=== PATIENT | male | born 1960 | race Caucasian/White ===

== ENCOUNTER 2023-10-20 14:40 | Inpatient (IN) | payer OTHER, SELFPAY ==
[2023-10-20] VITALS (9 sets, daily range): BP systolic 102–130; BP diastolic 41–74; PULSE 48–59; RESP 13–22; TEMP 36.1–36.9; O2SAT 93–95; BMI 31.2
[2023-10-20] MEDS: LACTATED RINGERS 1,000 ML 42 ML IV ×2 (18:31→20:08)
--- NOTE | 2023-10-20 18:46 | PM.HP.1 ---
History of Present Illness History of Present Illness Date Patient Seen: 10/20/23 Time Patient Seen: 18:46 Date of Onset of Symptoms: 10/20/23 Chief complaint: DX: Left knee replacement complication Narrative: 63-year-old male had a total on 10/04/[address] Ruggiero. He was doing excellent postoperatively with range of motion to 120? and walking mostly without a walker when he slipped on a wet floor and fell this morning and sustained a wound dehiscence to his left total knee arthroplasty incision. He was seen at [facility] and transferred to [facility] for definitive care. Time of injury with a proximally 10:00 a.m.. The patient has been NPO since that time. Prior to that his pain was well-controlled. He was on aspirin b.i.d. for DVT prophylaxis. He denies any head injury. No fevers or chills. Denies syncope or lightheadedness. States with mechanical fall after slipping. On dog urine [facility] Social History household members: spouse Smoking Status: Former smoker Meds Home Medications and Allergies Allergies Allergy/AdvReac Type Severity Reaction Status Date / Time oxycodone AdvReac Intermediate Confusion Verified 10/20/23 18:21 hydrocodone AdvReac Confusion Verified 10/20/23 18:22 Review of Systems Review of Systems ROS: Yes All systems reviewed with the patient and are negative except as otherwise documented Exam Vital Signs (past 8 hours): - 10/20/23 18:22 Temperature 97.2 F L Pulse Rate 50 L Respiratory Rate 16 Blood Pressure 113/43 L Pulse Oximetry 95 Oxygen Delivery Method Room Air Oxygen Delivery Method Room Air Narrative Exam Narrative: General examination: Alert oriented male no acute distress lying in the hospital stretcher. Family at bedside. HEENT exam normocephalic atraumatic Heart regular rate and rhythm Lungs clear to auscultation Left lower extremity in bandage with blood. Calf is soft. Thigh is soft. Wiggles toes and dorsiflexes and plantar flexes ankle. Rest of knee exam limited due to known bandage and acute injury. Brisk capillary refill. Upper extremities are benign with full range of motion no limitations Const General: cooperative Objective Imaging 2 views the left knee: My impression: AP and lateral of the left knee reviewed from [facility] on 10/20/2023 demonstrate knee arthroplasty, expected alignment, no obvious fractures. Assessment & Plan Assessment and plan (1) Wound dehiscence, surgical: Status: Acute (2) History of total left knee replacement: Status: Acute Plan Patient has a wound dehiscence of his left total knee replacement incision. He is 2 weeks out from surgery this was sustained after a mechanical fall. He is indicated for surgical irrigation debridement. If the dehiscence goes deep to the arthrotomy and exposed the implant then would do a poly exchange. We will get preoperative and 24 hours of postoperative antibiotics. Postoperative will be weightbear as tolerated and will resume standard total knee arthroplasty protocol. We discussed risks benefits and alternatives of the surgery. We discussed risks of wound dehiscence, wound healing complications, infection, need for additional surgery or need for additional antibiotics were need for additional extensor mechanism repair. The risks and benefits of the procedure have been discussed with the patient and given the opportunity to ask questions. We also discussed complications including DVT, PE, cardiopulmonary complications and . The patient expressed a thorough understanding of the risks and benefits of surgery and has elected to proceed. Consent was signed. Site of surgery was marked. Assessment & Plan narrative: High Level medical decision-making. Indication for direct admission to the hospital and urgent surgery for washout exposed total knee arthroplasty after surgical dehiscence from mechanical fall. PROFEE Charge Codes Initial inpatient/observation care: [id number]
[2023-10-20] MEDS: CEFAZOLIN 2 GM/100 ML PREMIX 100 ML IV ×2 (19:12→21:55)
[2023-10-20] MEDS: ACETAMINOPHEN IV 1,000 MG/100 ML VIAL 400 MG IV (19:15)
--- NOTE | 2023-10-20 19:33 | SUR.OPER ---
Supine on padded OR bed. Pillow under head, arms secured on padded armboards <90 degree abduction. Safety belt across torso. Non-operative leg secured with tape over blanket over lower leg. Operative leg secured in Javan positioner. Foam padded brace at thigh of operative leg.
[2023-10-20] MEDS: BUPIVACAINE 0.25% (PF) 30 ML, EPINEPHrine 0.15 MG INJ (19:42)
--- NOTE | 2023-10-20 21:19 | PM.OP.1 ---
Operative Date/Time/Diagnoses Date of procedure: 10/20/23 Time of procedure: 19:00 Pre-op diagnosis: Complication left total knee replacement with surgical dehiscence, deep, exposed implant. After fall Post-op diagnosis: same Procedure & Clinicians Procedure: 1. revision left knee replacement, limited 1 component--- polyethylene liner exchange, irrigation debridement and closure complex wound. CPT code 08942 +52 Same procedure as scheduled: Yes Indications: The patient is a 63-year-old male that underwent a total knee arthroplasty on on 10/04/2023. Was doing very well at his 2 week postop appointment then this morning fell at home when he was walking without assistive devices after slipped on dog urine on the ground. He fell onto his left knee and sustained a surgical wound dehiscence through the skin and arthrotomy with exposed implant. He was taken to the hospital in [place] and evaluated with the open wound and exposed implant and transferred to [facility] and [place] for definitive treatment with his operating surgeon. The risks and benefits of the procedure have been discussed with the patient and given the opportunity to ask questions. The risks of surgery include but are not limited to infection, malunion, nonunion, persistence of pain, damage to nerves and blood vessels, posttraumatic arthritis, DVT, PE, cardiopulmonary complications and . The patient expressed a thorough understanding of the risks and benefits of surgery and has elected to proceed. Consent was signed. Surgeon: Smiley Ruggiero Click Yes if Unassisted: Yes Anesthesia Type: General and Local (0.25% Marcaine with epinephrine) Operative Notes Findings: Complete surgical wound dehiscence of the total knee incision through the skin and through the arthrotomy with exposed implant and ruptured deep sutures directly visible. Polyethylene and metallic knee replacement components directly visualized in the wound. Lead disruption of medial arthrotomy medial to patellar tendon extending along the medial arthrotomy medial patella through the parapatellar approach.. Components not loose. Closure Type: primary Prosthetic devices, grafts, tissues, transplants, or devices: Polyethylene liner exchange was completed. Size 8 9 mm liner was removed and exchanged for a new [employer] journey 2 B CS size 8 left 9 mm polyethylene Estimated Blood Loss (mL): 100 Blood products transfused: none Tourniquet time (min): 0 Procedure in detail: Patient was seen in the preoperative area the site of surgery marked informed consent confirmed. The patient was brought to the operating room by the anesthesia team positioned supine on operative table. General anesthetic was administered. A well-padded thigh tourniquet was applied. An SCD was applied to the contralateral lower extremity. The left lower extremity was then prepped and draped in the standard sterile fashion Betadine was used in the open wound and chlorhexidine around it. A formal time-out procedure was performed confirming the patient's side and site of surgery administration of appropriate preoperative antibiotic she is 2 g of Ancef. All were in agreement. Attention was turned to the left knee. Tourniquet was not inflated. Previous incision was completely dehisced along the entirety of the incision as well as entirety of the arthrotomy. Implant was directly visible as well as old coagulated blood. Procedure started with the irrigation and debridement of the wound edges and deep clot. Old sutures were removed with a rongeur. Fifteen blade was used to debride the wound edges and nonviable deep tissue with sharp excision. Sharp debridement. The Extent of the dehiscence was explored this extended the entirety of the arthrotomy in a medial parapatellar fashion and up into the medial quadriceps. A new blade was used to extend the skin incision approximately 3 cm to reach the most proximal aspect of the split into the quadriceps. And 3 L of pulsatile lavage was washed through the knee at this point the polyethylene liner was removed using an osteotome and Chelle. Another 3 L of saline was washed through the knee and then a Betadine soak was completed for about 3 minutes. This was then irrigated with another L of saline. Then gloves were changed. The new polyethylene liner was placed inserted and secured and locked in place. Knee was taken through range of motion was stable in varus and valgus stress testing. At this point knee was brought up into about 30? of flexion and the arthrotomy was closed with 1. Ethibond suture. Next the Quill stitch was used in a running fashion the rest of the arthrotomy. Knee was then taken through range of motion there was no gapping. Several deep dermal 0 Vicryl sutures were used for approximation then 3-0 Vicryl subcutaneously followed by the 3-0 running Monocryl Stratafix. Skin was then closed with tremayne and a few 3 0 nylon sutures. Again the knee was taken through full range of motion no gapping or concerning areas of the surgical repair. Patellar tracking was normal. At this point 0.25% Marcaine with epinephrine was injected for local anesthetic. An Aquacel dressing was applied. Followed by an Aneesh wrap. The drapes removed. The patient was woken from anesthesia and taken to the recovery unit in good condition. There were no immediate complications from this procedure. Counts were correct. Complications: none Post-operative Condition: stable Disposition: PACU Plan for aftercare: Weightbear as tolerated with assistive devices. Work with physical therapy. Two doses of postoperative antibiotics. We will retract the MP tomorrow. Creatinine from the outside hospital demonstrated 1.59. We will get fluids overnight and we will recheck this in the morning. Likely discharge when clears physical therapy and completed antibiotics tomorrow. Follow up in 2 weeks in Orthopedic Clinic for staple removal. May re-initiate physical therapy in in 1 week
--- NOTE | 2023-10-20 21:36 | P.PN_ITS ---
Subjective Subjective Interval history: Status post irrigation debridement and revision left total knee arthroplasty with polyethylene exchange --weightbear as tolerated work with physical therapy. -- will have 2 doses of postoperative antibiotics (Ancef) --discharged home once finished with the antibiotics and clears PT. Likely tomorrow. --rechecking BMP for creatinine in the a.m.. Creatinine from [facility] yesterday was 1.59--will get fluid overnight. --patient very sensitive to narcotics we will try to avoid these unless pain not controlled with other means. Can take his baseline meloxicam as well as Tylenol. And Vistaril.--and ice --follow up in Orthopedic Clinic with Dr. Ruggiero in 2 weeks --May initiate his physical therapy in about a week. -- dressing in place. May shower --aspirin 81 mg b.i.d. for DVT prophylaxis --takes some non formulary medications--these were entered in and communicated to pharmacy who will go over these tomorrow Exam Vital Signs (past 8 hours): - 10/20/23 18:22 10/20/23 20:47 10/20/23 20:49 Temperature 97.2 F L 98.4 F Pulse Rate 50 L 59 L 57 L Respiratory Rate 16 13 22 Blood Pressure 113/43 L 105/41 L 102/43 L Pulse Oximetry 95 95 93 Oxygen Delivery Method Room Air Room Air Room Air Oxygen Flow Rate 10/20/23 20:53 10/20/23 20:59 Temperature Pulse Rate 55 L 53 L Respiratory Rate 21 17 Blood Pressure 112/49 L 111/74 Pulse Oximetry 94 94 Oxygen Delivery Method Nasal Cannula Nasal Cannula Oxygen Flow Rate 3 3 Oxygen Delivery Method Nasal Cannula Oxygen Flow Rate 3 [facility] Social History household members: spouse Smoking Status: Former smoker Assessment & Plan Time-Based Coding :: [TOTAL MINUTES] spent with patient and on the chart (including review of chart, obtaining history, exam, reviewing outside data, placing orders, documenting exam and treatment plan, and counseling patient) on [DATE].
[2023-10-20] MEDS: ASPIRIN EC 81 MG TABLET PO (23:04)
[2023-10-20] MEDS: SENNOSIDES 8.6 MG TABLET 17.2 MG PO (23:04)
[2023-10-20] MEDS: ALPRAZolam 0.25 MG TABLET PO (23:04)
[2023-10-20] MEDS: diphenhydrAMINE 25 MG TABLET PO (23:04)
[2023-10-20] MEDS: ATORVASTATIN 20 MG TABLET 10 MG PO (23:04)
[2023-10-20] MEDS: DOCUSATE 100 MG CAPSULE PO (23:04)
[2023-10-20] MEDS: HYDROMORPHONE 0.5 MG INJ IV (23:04)
[2023-10-20] MEDS: LACTATED RINGERS 1,000 ML 100 ML IV (23:05)
[2023-10-20] MEDS: ACETAMINOPHEN 325 MG TABLET 650 MG PO (23:18)
[2023-10-21] VITALS: BP 127/41; PULSE 56; RESP 17; TEMP 35.9; O2SAT 96
--- NOTE | 2023-10-21 01:27 | PC.NURSE ---
Bladder scan showed 545 ml urine retention. Patient straight cathed for 400 ml.
--- NOTE | 2023-10-21 02:04 | PC.NURSE ---
respiratory therapy technician Bladder scan 545mL, straight cath 400mL output, residual scan >10 mL. Patient tolerated well.
[2023-10-21] MEDS: HYDROMORPHONE 0.5 MG INJ IV ×2 (02:23→06:32)
[2023-10-21] MEDS: ACETAMINOPHEN 325 MG TABLET 650 MG PO ×2 (03:40→10:10)
[2023-10-21 04:00] VITALS: BP 126/45; PULSE 54; RESP 16; TEMP 35.6; O2SAT 96
[2023-10-21] MEDS: CEFAZOLIN 2 GM/100 ML PREMIX 100 ML IV (04:52)
[2023-10-21 06:31] LABS: Hematocrit 26.1 % (41-53)
[2023-10-21 06:32] LABS: BUN Creatinine Ratio 20.5 (6-22); Blood Urea Nitrogen 44 mg/dL (9-20); Calcium 8.4 mg/dL (8.4-10.2); Carbon Dioxide 21 mmol/L (22-32); Chloride 103 mmol/L (98-107); Estimated Glomerular Filt Rate 34 mL/min (>60); Glucose 172 mg/dL (80-110); HEMOLYSIS < 15 (0-50); Sodium 132 mmol/L (137-145)
[2023-10-21 08:00] VITALS: BP 110/33; PULSE 58; RESP 18; TEMP 36.1; O2SAT 93
[2023-10-21] MEDS: DOCUSATE 100 MG CAPSULE PO (08:46)
[2023-10-21] MEDS: BUSPIRONE 5 MG TABLET PO (08:46)
[2023-10-21] MEDS: CITALOPRAM 10 MG TABLET 40 MG PO (08:46)
[2023-10-21] MEDS: ASPIRIN EC 81 MG TABLET PO (08:46)
[2023-10-21] MEDS: SODIUM CHLORIDE 0.9% FLUSH 10 ML IV (10:00)
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
--- NOTE | 2023-10-21 11:25 | P.CONS_ITS ---
History of Present Illness Consult details Date Patient Seen: 10/21/23 Time Patient Seen: 08:10 Chief complaint: DX: Left knee replacement complication Reason for consult: Elevated creatinine Requesting provider: Smiley Ruggiero Narrative: In 63-year-old man under the primary care of Dr. Shanks and fluid rate underwent left total knee arthroplasty on 10/04/2023 which unfortunately was complicated by a wound dehiscence yesterday morning when he fell at home. He underwent operative repair at this hospital yesterday. Per report (outside records not available) his serum creatinine was 1.59 mg/dL and today increased to 2.15 mg/dL. He notes a history of ?heart murmur? and is on multiple medications for this as well as hypertension, including lisinopril, amlodipine, hydrochlorothiazide and spironolactone. He also takes meloxicam for pain. He denies routine aspirin or NSAID use otherwise. He is on aspirin 81 mg b.i.d. for postoperative DVT prophylaxis. He has lost 80 lb in anticipation of this surgery. He notes blood pressures have been well controlled too low at home. He has had no lightheadedness, dizziness, chest pain, shortness of breath, lower extremity edema, or history of thromboembolism. This morning his urine output was low and he was catheterized once with 500 mL urine output, and since then has been freely voiding. Meds Home Medications and Allergies Home Medications Medication Instructions Recorded Confirmed Type amlodipine 10 mg tablet 10 mg PO DAILY 10/21/23 10/21/23 History buspirone 10 mg PO BID 10/21/23 10/21/23 History citalopram 40 mg tablet (Celexa) 40 mg PO DAILY 10/21/23 10/21/23 History hydrochlorothiazide 12.5 mg tablet 12.5 mg PO DAILY 10/21/23 10/21/23 History lisinopril 40 mg tablet 40 mg PO DAILY 10/21/23 10/21/23 History meloxicam 15 mg tablet 15 mg PO DAILY 10/21/23 10/21/23 History methylphenidate HCl 60 mg biphasic 60 mg PO QAM 10/21/23 10/21/23 History 30-70 capsule,extended release nebivolol 20 mg tablet 20 mg PO DAILY 10/21/23 10/21/23 History rosuvastatin 5 mg tablet 5 mg PO DAILY 10/21/23 10/21/23 History spironolactone 100 mg tablet 100 mg PO DAILY 10/21/23 10/21/23 History Allergies Allergy/AdvReac Type Severity Reaction Status Date / Time oxycodone AdvReac Intermediate Confusion Verified 10/20/23 18:21 hydrocodone AdvReac Confusion Verified 10/20/23 18:22 Review of Systems Review of Systems ROS: Yes All systems reviewed with the patient and are negative except as otherwise documented Exam Vital Signs (past 8 hours): - 10/21/23 04:00 10/21/23 08:00 Temperature 96.1 F L 97.0 F L Pulse Rate 54 L 58 L Respiratory Rate 16 18 Blood Pressure 126/45 L 110/33 L Pulse Oximetry 96 93 Oxygen Flow Rate 0 Oxygen Delivery Method Nasal Cannula Oxygen Flow Rate 0 Narrative Exam Narrative: GENERAL: This is a well-nourished, well-developed patient, in no apparent distress. EYES: Pupils equal round and reactive. Extraocular motions intact. No scleral icterus. No injection or drainage. ENT: Mucous membranes pink and moist. NECK: Trachea midline. No JVD, bruits or lymphadenopathy. Supple, nontender, no meningeal signs. CARDIOVASCULAR: Regular rate and rhythm with grade 2-3/6 blowing diastolic murmur at the apex. RESPIRATORY: Clear to auscultation. GASTROINTESTINAL: Abdomen soft, non-tender, nondistended. EXTREMITIES: Trace edema left leg. NEUROLOGIC: Alert, oriented, speech fluent, full upper and lower motor strength, no focal deficits evident. DERMATOLOGIC: No rashes or skin lesions. Objective Labs 10/21/23 05:45 10/21/23 05:45 Labs: Laboratory Results - last 24 hr 10/21/23 05:45 Hgb 9.0 L Hct 26.1 L Sodium 132 L Potassium 5.0 Chloride 103 Carbon Dioxide 21 L BUN 44 H Creatinine 2.15 H Estimated GFR 34 L BUN/Creatinine Ratio 20.5 Glucose 172 H Calcium 8.4 [facility] Medical History (Updated 10/21/23 @ 11:37 by Antony Gusman MD) Essential hypertension Aortic insufficiency Social History household members: spouse Tobacco & Substance Use Smoking Status: Former smoker Assessment & Plan Assessment and plan (1) KESHA (acute kidney injury): Problem details: The patient reportedly has normal baseline renal function appear Status: Acute Plan: This delightful patient with normal baseline renal function presents with acute kidney injury, likely due to volume depletion and over treatment with antihypertensives in the setting of recent voluntary 80 lb weight loss in anticipation of surgery. Recommend holding antihypertensives (amlodipine, lisinopril, nebivolol, hydrochlorothiazide and spironolactone) and stopping meloxicam at this point. He demonstrates good urine output at this point and has been well hydrated intravenously over night, and is able to maintain good oral intake. He is advised to continue with good oral fluid intake, hold the abovementioned medications, and measure home blood pressures and report these to his cardiovascular lab director or primary care provider in the next few days. When he does not need more IV fluids or hospitalization and can be discharged home from a medical perspective. He should have renal function checked within the next few days. The patient acknowledged understanding, agreement and appreciation of this plan of care, and agreed to call back with any questions or concerns. (2) Aortic insufficiency: Problem details: Presumed based on exam and self reported history. As above. Qualifiers: Cardiac valve disease etiology: nonrheumatic Qualified Code(s): I35.1 - Nonrheumatic aortic (valve) insufficiency Status: Acute (3) Essential hypertension: Problem details: Over treated. As above. Status: Acute (4) Other mechanical complication of internal left knee prosthesis, initial encounter: Status: Acute (5) Complication of internal left knee prosthesis: Qualifiers: Device complication type: mechanical Mechanical complication type: o ther Encounter type: subsequent encounter Qualified Code(s): T84.093D - Other mechanical complication of internal left knee prosthesis, subsequent encounter Status: Acute (6) History of total left knee replacement: Status: Acute (7) Wound dehiscence, surgical: Qualifiers: Encounter type: subsequent encounter Qualified Code(s): T81.31XD - Disruption of external operation (surgical) wound, not elsewhere classified, subsequent encounter Status: Acute Assessment & Plan narrative: Recommendations: Maintain good oral fluid intake Hold amlodipine, lisinopril, nebivolol, hydrochlorothiazide and spironolactone Discontinued meloxicam Follow up with primary care provider/Cardiology to recheck renal function this week Medically clear for discharge home
--- NOTE | 2023-10-21 11:44 | PM.PN.1 ---
Subjective Subjective Date Patient Seen: 10/21/23 Time Patient Seen: 11:44 Interval history: This is a 63-year-old male who had a knee wound dehiscence that was irrigated by Dr. Mckee with a poly exchange yesterday. He has recovered well overnight and has not had any issues this morning. Denies any recent nausea, vomiting, diarrhea, fevers, chills or any other constitutional symptoms. Exam Vital Signs (past 8 hours): - 10/21/23 04:00 10/21/23 08:00 Temperature 96.1 F L 97.0 F L Pulse Rate 54 L 58 L Respiratory Rate 16 18 Blood Pressure 126/45 L 110/33 L Pulse Oximetry 96 93 Oxygen Flow Rate 0 Oxygen Delivery Method Nasal Cannula Oxygen Flow Rate 0 Narrative Exam Narrative: HEENT: Head atraumatic eyes anicteric moist mucous membranes Cardiovascular: Palpable peripheral pulses extremities are warm and well perfused Respiratory: Breathing comfortably on room air Psychiatric: Appropriate mood and affect Neuro: No acute deficits Musculoskeletal: Exam of the left lower extremity demonstrates Aquacel dressing in place. Able to wiggle toes no numbness or tingling. Able to flex EHL FHL tib ant and gastrocs. 2+ dorsalis pedis pulse with brisk capillary refill less than 2 seconds. Objective Labs 10/21/23 05:45 10/21/23 05:45 Labs: Laboratory Results - last 24 hr 10/21/23 05:45 Hgb 9.0 L Hct 26.1 L Sodium 132 L Potassium 5.0 Chloride 103 Carbon Dioxide 21 L BUN 44 H Creatinine 2.15 H Estimated GFR 34 L BUN/Creatinine Ratio 20.5 Glucose 172 H Calcium 8.4 PFSH Medical History (Updated 10/21/23 @ 11:37 by Antony Gusman MD) Essential hypertension Aortic insufficiency Social History household members: spouse Smoking Status: Former smoker Assessment & Plan Assessment & Plan narrative: Assessment: 63-year-old male status post irrigation, debridement and poly exchange doing well in his 1st day postop Plan: Discharge today. We discussed fall precautions. All questions answered fully and to his satisfaction. Time-Based Coding :: [TOTAL MINUTES] spent with patient and on the chart (including review of chart, obtaining history, exam, reviewing outside data, placing orders, documenting exam and treatment plan, and counseling patient) on [DATE].
--- NOTE | 2023-10-21 12:21 | CM.DANOTE ---
Brief DCP Assessment note Pt is a 63yo M direct admit from [facility]. Two weeks post op left knee replacement. Recovery was going well until he had a fall. Left knee revision with Dr. Ruggiero on 10.20.23 PCP none listed Payer [employer] and self pay TRADE SPECIALIST reviewed EMR. Pt lives in [facility] with spouse Yoly and has local dtr Miya support. Per PT eval, rec home with assistance. Per hospitalist in morning rounds, consulted for some medication adjustments. Wrote recommendations in PN and cleared for dc from his perspective. TRADE SPECIALIST messaged Dr. Weiner with Dr. Gusman's input and where to find his recs for med changes. Dr. Weiner plans to dc pt home today. Per RN, lots of family and equip support. no CM needs likely. P: dc home today with OP f/u rec for PCP med changes and OP PT. no identified barriers to safe dc home. BRONSON Sanz Discharge Planning/Care Management CM Discharge Assessment Start: 10/21/23 12:18 Freq: Status: Active Protocol: Document 10/21/23 12:20 SL (Rec: 10/21/23 12:20 [id number]) Discharge Planning Assessment Assigned Minute Clerk For [employer] BRONSON Levin DPOA/Assigned Designee Name Yoly. spouse Contact Information [phone] Advance Directives? No History Provided By Patient,Family Member Prior Living Arrangements House Household Members spouse Independent with ADL's Yes Is patient alert and oriented? Yes Barriers to Discharge No Discharge Plan Home Transportation Arrangement family Referrals Initiated None needed Whiteboard Updated in Patient Room with No name and ext. # of Minute Clerk [employer] Review Status In Process Please Provide Date Initial DC 10/21/23 Assessment Was Performed Next Review Type Continued Stay Review
--- NOTE | 2023-10-21 13:22 | PC.NURSE ---
Patient is A&OX3-4. His initial DBP is low, he is asymptomatic. A.m. BP meds held. He is evaluated by the hospitalist this a.m. and patient in agreement to hold BP meds and motrin until following up with PCP and production cook. Patient is cleared by PT for discharge home with and daughter today. Patient is cleared by ortho and medicine for discharge home today as well. Patient and verbalize understanding of site care, activity limitations, s//sx of infection, medications and follow up with ortho appointment as well as PCP. He is escorted by RN via w/ch with all of his belongings at 1230 pm this afternoon in private vehicle for discharge home.
== END 2023-10-21 12:30 | disposition home or self-care (01) | DRG 902 ==
PROVIDERS: Orthopaedic Surgery Foot and Ankle Surgery; Admitting Provider Orthopaedic Surgery; PCP Family Medicine; Referring Provider Orthopaedic Surgery; Visit Provider Orthopaedic Surgery
PROC: 0SPD09Z Removal of Liner from Left Knee Joint, Open Approach (ICD-10-PCS; principal; 2023-10-20 18:15)
DX: T81.32XA Disruption of internal operation (surgical) wound, not elsewhere classified, initial encounter (principal); N17.9 Acute kidney failure, unspecified; I35.1 Nonrheumatic aortic (valve) insufficiency; I10 Essential (primary) hypertension; Z87.891 Personal history of nicotine dependence; Z96.652 Presence of left artificial knee joint
CPT/HCPCS: 36415; 80048; 85014; 85018; 97116; 97161; 97535; C1776; J0136; J0171; J0330; J0690; J1100; J1170; J1885; J2405; J2704; J3010